=== PATIENT | male | born 1990 | race African-American/Black ===

== ENCOUNTER 2017-05-08 09:21 | Emergency (ER) | payer OTHER ==
[~2017-05-08] VITALS: Ht 170.2 cm; Wt 64.9 kg
[2017-05-08] MEDS ORDERED: TRAMADOL 50 MG50 MG PO (09:44)
[2017-05-08] MEDS ORDERED: BACTRIM 400-801 EACH PO (09:48)
[2017-05-08] MEDS ORDERED: NAPROSYN500 MG PO (09:48)
== END 2017-05-08 09:52 | disposition home or self-care (01) ==
LOC: ER 09:21
DX: L03.211 Cellulitis of face (principal); M26.601 Right temporomandibular joint disorder, unspecified